=== PATIENT | male | born 1990 | race African-American/Black ===

== ENCOUNTER 2018-10-27 23:11 | Emergency (ER) | payer OTHER ==
[~2018-10-27] VITALS: Ht 167.6 cm; Wt 74.8 kg
[~2018-10-27 23:11] MED LIST: ACETAMINOPHEN-1 EAC1 PO; NOHOMEMEDICATIONS; ZPAK PO
[2018-10-27 23:12] VITALS: BP 138/83
== END 2018-10-27 23:47 | disposition home or self-care (01) ==
LOC: ER 23:11
DX: S60.221A Contusion of right hand, initial encounter (principal); Z88.6 Allergy status to analgesic agent; W22.8XXA Striking against or struck by other objects, initial encounter; Y92.89 Other specified places as the place of occurrence of the external cause; Y93.89 Activity, other specified; Y99.8 Other external cause status